=== PATIENT | female | born 1970 | race Caucasian/White ===

== ENCOUNTER 2019-07-19 05:53 | Day surgery (SDC) | payer OTHER ==
[2019-07-12 13:40] VITALS: BMI 48.2
[2019-07-19] MEDS ORDERED: LIDOCAINE HCL 2% (20ML MULTI-DOSE VIAL) ONE (07:07)
[2019-07-19] MEDS ORDERED: BUPIVACAINE HCL 0.25% 125 MG/50 ML VIAL ONE (07:07)
[2019-07-19] MEDS ORDERED: MIDAZOLAM HCL 2 MG/2 ML SINGLE DOSE VIAL ONE ×2 (07:28→07:39)
[2019-07-19] MEDS ORDERED: PROPOFOL 20 ML ONE (07:29)
[2019-07-19] MEDS ORDERED: SUCCINYLCHOLINE CHLORIDE 200 MG/10 ML SYRINGE ONE (07:30)
[2019-07-19] MEDS ORDERED: LIDOCAINE HCL 2% (50ML VIAL) INF ONE (07:45)
[2019-07-19 08:55] VITALS: BP 121/77; PULSE 60; TEMP 9737
[2019-07-19] MEDS ORDERED: LACTATED RINGERS SOLUTION 1,000 ML IV SCH (10:45)
[2019-07-19] MEDS ORDERED: ONDANSETRON 4 MG/2 ML VIAL IVPUSH PRN (10:48)
[2019-07-19] MEDS ORDERED: ACETAMINOPHEN 325 MG TABLET (FP) PO PRN (10:48)
--- NOTE | 2019-07-19 11:41 | OP ---
DATE OF OPERATION: 07/19/2019 PREOPERATIVE DIAGNOSIS: Right carpal tunnel syndrome. POSTOPERATIVE DIAGNOSIS: Right carpal tunnel syndrome. OPERATIVE PROCEDURE: Right carpal tunnel release. SURGEON: Josue Lau MD ANESTHESIA: Local sedation. COMPLICATIONS: None. ESTIMATED BLOOD LOSS: Minimal. INDICATION FOR PROCEDURE: The patient is a 48-year-old female with above findings indicated for operative treatment. Risks, benefits, and alternatives were discussed with patient at length. Proper informed consent was obtained. DESCRIPTION OF PROCEDURE: After proper identification of the patient and the correct operative site, patient was brought to the operating room and placed supine on the operating table. All bony prominences were well padded. Sedation and local anesthesia were given by the anesthesiologist. Right upper extremity was prepped and draped in usual sterile fashion. Esmarch bandage was used to exsanguinate right upper extremity. Tourniquet was inflated to 250 mmHg. A longitudinal incision was made over the proximal aspect of the palm. Incision was taken sharply through skin with blunt and sharp dissection through subcutaneous tissue. Palmar fascia was divided longitudinally. Transverse carpal ligament, along with the distal 4 cm of the antebrachial fascia were divided longitudinally under direct visualization with Loupe magnification. This provided complete release of the median nerve of the wrist. Wound was repaired with 5-0 fast absorbing plain gut sutures. Sterile dressings were applied. Patient was brought to the recovery room in stable condition. She tolerated the procedure well. JOSUE LAU M.D. [id number]
== END 2019-07-19 09:00 | disposition home or self-care (01) ==
LOC: FASU 05:53
PROVIDERS: ATTEND Orthopaedic Surgery Hand Surgery
PROC: 01N50ZZ Release Median Nerve, Open Approach (ICD-10-PCS; principal; 2019-07-19 07:50)
DX: G56.01 Carpal tunnel syndrome, right upper limb (principal)
CPT/HCPCS: 81025

== ENCOUNTER 2021-01-29 06:50 | Day surgery (SDC) | payer OTHER ==
[2021-01-21 11:35] VITALS: BMI 48.2
[2021-01-29] MEDS ORDERED: BUPIVACAINE HCL/EPINEPHRINE/PF 30 ML VIAL IJ ONE (07:20)
[2021-01-29] MEDS ORDERED: LIDOCAINE HCL 2% (20ML MULTI-DOSE VIAL) ONE (07:20)
[2021-01-29] MEDS ORDERED: PROPOFOL 20 ML ONE ×2 (08:02)
[2021-01-29] MEDS ORDERED: MIDAZOLAM HCL 2 MG/2 ML SINGLE DOSE VIAL ONE (08:02)
[2021-01-29] MEDS ORDERED: DESFLURANE GAS 240 ML BOTTLE IH ONE (08:14)
[2021-01-29] MEDS ORDERED: KETOROLAC TROMETHAMINE 30 MG/1 ML VIAL ONE (08:31)
[2021-01-29] MEDS ORDERED: ONDANSETRON 4 MG/2 ML VIAL ONE ×2 (08:31→09:36)
[2021-01-29] MEDS ORDERED: DEXAMETHASONE SOD PHOSPHATE 4 MG/1 ML VIAL ONE (08:31)
[2021-01-29] MEDS ORDERED: ONDANSETRON 4 MG/2 ML VIAL IVPUSH PRN (09:12)
[2021-01-29] MEDS ORDERED: oxyCODONE HCL 5 MG TABLET PO PRN ×2 (09:12)
[2021-01-29] MEDS ORDERED: LACTATED RINGERS SOLUTION 1,000 ML IV SCH (09:15)
[2021-01-29] MEDS ORDERED: PROMETHAZINE HCL 25 MG/1 ML VIAL ONE (09:56)
[2021-01-29 10:12] VITALS: TEMP 97.8
[2021-01-29] MEDS ORDERED: PROMETHAZINE HCL 25 MG/1 ML VIAL IVPB PRN (10:22)
[2021-01-29 10:38] VITALS: BP 112/68; PULSE 64
== END 2021-01-29 11:16 | disposition home or self-care (01) ==
LOC: FASU 06:50
PROVIDERS: ATTEND Orthopaedic Surgery Hand Surgery
PROC: 01N50ZZ Release Median Nerve, Open Approach (ICD-10-PCS; principal; 2021-01-29 08:23)
PROC: 01N40ZZ Release Ulnar Nerve, Open Approach (ICD-10-PCS; 2021-01-29 08:23)
DX: G56.02 Carpal tunnel syndrome, left upper limb (principal); G56.22 Lesion of ulnar nerve, left upper limb
CPT/HCPCS: 84703; 94760